=== PATIENT | female | born 1970 | race Caucasian/White ===

== ENCOUNTER 2017-03-11 04:40 | Emergency (ER) | payer SELFPAY ==
[~2017-03-11] VITALS: Ht 165.1 cm; Wt 110.0 kg
[2017-03-11 04:44] VITALS: BP 154/117; PULSE 101; RESP 18; TEMP 99; O2SAT 96
--- NOTE | 2017-03-11 05:43 | PD ---
HPI Chief Complaint: Respiratory Symptoms Time Seen by Provider: 05:35 Travel History International Travel<30 days: No Contact w/Intl Traveler<30days: No Traveled to known affect area: No History of Present Illness HPI 46yo F with no PMH presents to the ED with c/o persistent cough for 1 month. States now she has midsternal chest pain with coughing. Also feels like she cant breathe. +Nasal congestion, throat pain, ear pain. Said she has intermittent fever. Denies any abdominal pain, focal weakness or numbness. PFSH Past Medical History Medical History: Denies Significant Hx ?: Not Past Surgical History Abdominal Surgery: Yes (LAP/ HERNIA REPAIR) Section: Yes (X3) Social History Alcohol Use: No Tobacco Use: No Substance Use: No Allergies-Medications (Allergen,Severity, Reaction): Coded Allergies: No Known Allergies (Unverified , 03/11/17) Reported Meds & Prescriptions Reported Meds & Active Scripts Active Reported Hydrochlorothiazide 12.5 Mg Tab 12.5 Mg PO DAILY Lisinopril 40 Mg Tab 40 Mg PO DAILY Review of Systems Except as stated in HPI: all other systems reviewed are Neg Physical Exam Narrative GENERAL: 46yo F in mild distress. SKIN: Focused skin assessment warm/dry. HEAD: Atraumatic. Normocephalic. EYES: Pupils equal and round. No scleral icterus. No injection or drainage. ENT: Throat: Clear. Uvula midline. TM wnl bilaterally. NECK: Trachea midline. No JVD. CARDIOVASCULAR: Regular rate and rhythm. No murmur appreciated. RESPIRATORY: No accessory muscle use. Clear to auscultation. Breath sounds equal bilaterally. GASTROINTESTINAL: Abdomen soft, non-tender, nondistended. MUSCULOSKELETAL: No obvious deformities. No clubbing. No cyanosis. No edema. NEUROLOGICAL: Awake and alert. No obvious cranial nerve deficits. Motor grossly within normal limits. Normal speech. PSYCHIATRIC: Appropriate mood and affect; insight and judgment normal. Data Data Last Documented VS Vital Signs Date Time Temp Pulse Resp B/P (MAP) Pulse Ox O2 Delivery O2 Flow Rate FiO2 03/11/17 07:08 86 16 120/56 (77) 98 Room Air 03/11/17 04:44 99.0 Orders Orders Electrocardiogram (03/11/17 ) Complete Blood Count With Diff (03/11/17 05:40) Basic Metabolic Panel (Bmp) (03/11/17 05:40) Troponin I (03/11/17 05:40) Influenzae A/B Antigen (03/11/17 05:40) Chest, Single Ap (03/11/17 ) Guaifenesin Liq (Robitussin Liq) (03/11/17 05:45) Ibuprofen (Motrin) (03/11/17 05:45) Labs Laboratory Tests Test 03/11/17 05:40 White Blood Count 11.3 TH/MM3 Red Blood Count 4.11 MIL/MM3 Hemoglobin 11.4 GM/DL Hematocrit 34.4 % Mean Corpuscular Volume 83.7 FL Mean Corpuscular Hemoglobin 27.8 PG Mean Corpuscular Hemoglobin Concent 33.2 % Red Cell Distribution Width 13.6 % Platelet Count 233 TH/MM3 Mean Platelet Volume 8.1 FL Neutrophils (%) (Auto) 75.7 % Lymphocytes (%) (Auto) 17.4 % Monocytes (%) (Auto) 5.2 % Eosinophils (%) (Auto) 1.4 % Basophils (%) (Auto) 0.3 % Neutrophils # (Auto) 8.5 TH/MM3 Lymphocytes # (Auto) 2.0 TH/MM3 Monocytes # (Auto) 0.6 TH/MM3 Eosinophils # (Auto) 0.2 TH/MM3 Basophils # (Auto) 0.0 TH/MM3 CBC Comment DIFF FINAL Differential Comment Blood Urea Nitrogen 13 MG/DL Creatinine 0.89 MG/DL Random Glucose 148 MG/DL Calcium Level 8.3 MG/DL Sodium Level 138 MEQ/L Potassium Level 3.7 MEQ/L Chloride Level 104 MEQ/L Carbon Dioxide Level 27.3 MEQ/L Anion Gap 7 MEQ/L Estimat Glomerular Filtration Rate 69 ML/MIN Troponin I LESS THAN 0.02 NG/ML MDM Medical Decision Making Medical Screen Exam Complete: Yes Emergency Medical Condition: Yes Interpretation(s) EKG: NSR 91bpm. Normal axis. No ST segment elevation or depression. Differential Diagnosis URI vs. pneumonia vs. bronchitis Narrative Course 46yo F with URI symptoms. Labs reviewed, no leukocytosis. Troponin negative. Do not think this is cardiac. Influenza negative. CXR negative. Pt given ibuprofen and robitussin with some relieve. Vital signs normal. Diagnosis Primary Impression: URI (upper respiratory infection) Qualified Codes: J06.9 - Acute upper respiratory infection, unspecified Patient Instructions: General Instructions Departure Forms: Tests/Procedures Additional Instructions: Please follow up with your primary care physician in 3-7 days. Return to the ED if symptoms worsen. Med/Other Pt SpecificInfo: Prescription(s) given Scripts Dextromethorphan (Robitussin Lingering Cold) 15 Mg Cap 30 MG PO Q8H Y for COUGH for 5 Days, #30 CAP 0 Refills Prov: Beatriz Duran DO 03/11/17 Acetaminophen (Tylenol) 325 Mg Tab 650 MG PO Q6H Y for PAIN SCALE 1 TO 4, #20 TAB 0 Refills Prov: Beatriz Duran DO 03/11/17 Disposition: 01 DISCHARGE HOME Condition: Stable Beatriz Duran DO Mar 11, 2017 05:43
[2017-03-11] MEDS ORDERED: guaiFENesin SOLUTION 200 MG/10 ML CUP PO ONE (05:45)
[2017-03-11] MEDS ORDERED: IBUPROFEN 600 MG TAB PO ONE (05:45)
[2017-03-11 06:25] LABS: AUTOMATED NEUTROPHIL # 8.5 TH/MM3 (1.8-7.7); BASOPHIL % 0.3 % (0.0-2.0); EOSINOPHIL # 0.2 TH/MM3 (0-0.4); EOSINOPHIL % 1.4 % (0.0-4.0); HEMATOCRIT 34.4 % (35.0-46.0); HEMO FLAGS DIFF FINAL; LYMPH % 17.4 % (9.0-44.0); MEAN CELL VOLUME 83.7 FL (80.0-100.0); MEAN CORPUSCULAR HEMOGLOBIN 27.8 PG (27.0-34.0); MEAN CORPUSCULAR HGB CONC 33.2 % (32.0-36.0); MONO % 5.2 % (0.0-8.0); NEUT % 75.7 % (16.0-70.0); PLATELET COUNT 233 TH/MM3 (150-450); RED BLOOD COUNT 4.11 MIL/MM3 (4.00-5.30); RED CELL DISTRIBUTION WIDTH 13.6 % (11.6-17.2); WHITE BLOOD COUNT 11.3 TH/MM3 (4.0-11.0)
--- NOTE | 2017-03-11 06:29 | RADRPT ---
EXAM DATE/TIME: 03/11/2017 06:17 [facility] COMPARISON: No previous studies available for comparison. INDICATIONS : Cough for one month. MEDICAL HISTORY : None. SURGICAL HISTORY : None. ENCOUNTER: Initial ACUITY: 1 month PAIN SCORE: 0/10 LOCATION: Bilateral chest FINDINGS: Single AP view of the chest. The lungs are clear. Cardiomediastinal silhouette within normal limits. No evidence of pleural effusion or pneumothorax. CONCLUSION: No acute cardiopulmonary disease identified. Dre Craig MD on March 11, 2017 at 6:26 Board Certified Radiologist. This report was verified electronically.
[2017-03-11 06:37] LABS: ANION GAP 7 MEQ/L (5-15); BICARBONATE 27.3 MEQ/L (21.0-32.0); BLOOD UREA NITROGEN 13 MG/DL (7-18); CHLORIDE 104 MEQ/L (98-107); GLOMERULAR FILTRATION RATE 69 ML/MIN (>89); POTASSIUM 3.7 MEQ/L (3.5-5.1); SODIUM (NA) 138 MEQ/L (136-145)
[2017-03-11 07:08] VITALS: BP 120/56; PULSE 86; RESP 16; O2SAT 98
[2017-03-11] MEDS ORDERED: LISI40TA PO (07:11)
[2017-03-11] MEDS ORDERED: HYDR12.56 PO (07:11)
[2017-03-11] MEDS ORDERED: TYLE325T PO (07:19)
[2017-03-11] MEDS ORDERED: ROBICAP2 PO (07:19)
--- NOTE | 2017-03-12 08:48 | EKG ---
Date Performed: 03/11/2017 Time Performed: 06:02:53 PTAGE: 46 years EKG: Sinus rhythm NORMAL ECG NO PREVIOUS TRACING DOCTOR: Marco Antonio Saez Interpretating Date/Time 03/12/2017 08:44:57
== END 2017-03-11 07:57 | disposition home or self-care (01) ==
LOC: NEPE 04:40
DX: J06.9 Acute upper respiratory infection, unspecified (principal); R07.1 Chest pain on breathing
CPT/HCPCS: 71010; 80048; 84484; 85025; 87804; 93005; 99285